=== PATIENT | female | born 1980 | race Caucasian/White ===

== ENCOUNTER 2017-10-24 13:12 | Outpatient (CLI) | payer OTHER | END 2017-10-24 15:00 | disposition home or self-care (01) | LOC: SUS 13:12 | PROVIDERS: ATTEND Specialist | DX: E04.2 Nontoxic multinodular goiter (principal) | CPT/HCPCS: 76536-TC ==

== ENCOUNTER 2017-11-25 07:38 | Inpatient (IN) | payer OTHER ==
[~2017-11-25] VITALS: Ht 172.7 cm; Wt 74.8 kg
[~2017-11-25 07:38] MED LIST: LIDOCAINE/EPI MPF 2%1:200000 10 ML VIAL INJ ONE
[2017-11-25] MEDS ORDERED: LR 1,000 ML IV SCH (08:53)
[2017-11-25] MEDS ORDERED: OXYTOCIN/0.9 % SODIUM CHLORIDE 1,000 ML IV SCH (08:53)
[2017-11-25] MEDS ORDERED: AMPICILLIN SODIUM 2 GM in NS 100 ML IV ONE (09:00)
[2017-11-25] MEDS ORDERED: TERBUTALINE SULFATE 1 MG/ML VIAL SUBCUT ONE (09:00)
[2017-11-25] MEDS ORDERED: NALBUPHINE HCL 10 MG/ML AMP IVP PRN (09:00)
[2017-11-25 09:37] VITALS: BP_SYST 118
[2017-11-25 10:15] LABS: BASOPHILS % (AUTO) 0.3 % (0.0-2.0); EOSINOPHILS # (AUTO) 0.2 K/uL (0.0-0.4); EOSINOPHILS % (AUTO) 1.7 % (0.0-4.0); HEMATOCRIT 33.9 % (36-48); HEMOGLOBIN 11.6 g/dL (12.0-16.0); LYMPHOCYTES # (AUTO) 1.5 K/uL (1.0-5.5); LYMPHOCYTES % (AUTO) 17.1 % (20.5-51.5); MEAN CORPUSCULAR HEMOGLOBIN 32 pg (27-31); MEAN CORPUSCULAR HGB CONC 34 % (32-36); MEAN CORPUSCULAR VOLUME 93 fL (79.0-98.0); MONOCYTES # (AUTO) 0.9 K/uL (0.0-1.0); MONOCYTES % (AUTO) 10.4 % (1.7-9.3); NEUTROPHILS # (AUTO) 6.3 K/uL (1.8-7.7); NEUTROPHILS % (AUTO) 70.5 % (40.0-70.0); PLATELET COUNT (AUTO) 194 K/uL (130-430); RED BLOOD CELL COUNT(AUTO) 3.64 MIL/uL (4.2-6.2); RED CELL DISTRIBUTION WIDTH 12.2 % (9.0-15.0); WHITE BLOOD COUNT (AUTO) 8.9 K/uL (4.8-10.8)
[2017-11-25] MEDS ORDERED: FENT2mCg/mL-ROPIVA0.2%/NS EPID 150 ML EP SCH (12:58)
[2017-11-25] MEDS ORDERED: fentaNYL CITRATE/PF 100 MCG/2 ML AMP ONE (12:58)
[2017-11-25] MEDS ORDERED: ROPIVACAINE 0.2% 100 ML ONE (12:58)
[2017-11-25] MEDS ORDERED: AMPICILLIN SODIUM 1 GM in NS 50 ML IV SCH (13:00)
[2017-11-25] MEDS ORDERED: OXYTOCIN/0.9 % SODIUM CHLORIDE 1,000 ML IV ONE (14:19)
[2017-11-25] MEDS ORDERED: HYDROCORTISONE 0.5%, 28.35 GM TOPICAL CREAM TP PRN (14:30)
[2017-11-25] MEDS ORDERED: GLYCERIN/WITCH HAZEL (TUCKS PADS) TP PRN (14:30)
[2017-11-25] MEDS ORDERED: ANUSOL 1 EA SUPP.RECT (PREPARATION H) RC PRN (14:30)
[2017-11-25] MEDS ORDERED: LANOLIN 7 GM OINT. TP PRN (14:30)
[2017-11-25] MEDS ORDERED: SENNOSIDES/DOCUSATE SODIUM 1 TAB TABLET(SENOKOT-S) PO PRN (14:30)
[2017-11-25] MEDS ORDERED: DOCUSATE SODIUM 100 MG CAPSULE PO PRN (14:30)
[2017-11-25] MEDS ORDERED: DERMOPLAST SPRAY TP PRN (14:30)
[2017-11-25] MEDS ORDERED: METHYLERGONOVINE MALEATE 0.2 MG TABLET PO PRN (14:30)
[2017-11-25] MEDS ORDERED: DIPH-TET-PERTUS Vaccine 0.5 ML VIAL (ADACEL) I.M. PRN (14:30)
[2017-11-25] MEDS: IBUPROFEN 600 MG TABLET PO SCH ×2 (18:04→23:50)
[2017-11-25] MEDS ORDERED: TEMAZEPAM 15 MG CAPSULE PO PRN (21:00)
[2017-11-26] MEDS: IBUPROFEN 600 MG TABLET PO SCH ×3 (05:59→17:43)
[2017-11-26 07:10] LABS: HEMATOCRIT 31.9 % (36-48); HEMOGLOBIN 10.8 g/dL (12.0-16.0)
[2017-11-27] MEDS: IBUPROFEN 600 MG TABLET PO SCH ×2 (00:37→06:26)
== END 2017-11-27 11:00 | disposition home or self-care (01) | DRG 775 ==
LOC: SPU 07:38
PROVIDERS: ADMIT Specialist; ATTEND Specialist
PROC: 10E0XZZ Delivery of Products of Conception, External Approach (ICD-10-PCS; principal; 2017-11-25)
PROC: 0W8NXZZ Division of Female Perineum, External Approach (ICD-10-PCS; 2017-11-25)
PROC: 3E0R3BZ Introduction of Anesthetic Agent into Spinal Canal, Percutaneous Approach (ICD-10-PCS; 2017-11-25)
PROC: 00HU33Z Insertion of Infusion Device into Spinal Canal, Percutaneous Approach (ICD-10-PCS; 2017-11-25)
DX: O69.81X0 Labor and delivery complicated by cord around neck, without compression, not applicable or unspecified (principal); O09.523 Supervision of elderly multigravida, third trimester; Z37.0 Single live birth; Z3A.39 39 weeks gestation of pregnancy
CPT/HCPCS: 36415; 85018-TC; 85025; 86592; 86886; 86900; 86901; J0290; J2590; J2795; J3010

== ENCOUNTER → 2018-02-24 | Day surgery (SDC) | payer OTHER | END | disposition still patient (30) | LOC: SUS 08:55 | PROVIDERS: ATTEND Specialist | DX: E04.2 Nontoxic multinodular goiter (principal) | CPT/HCPCS: 10022; 88172; 88173; 88305; 88307 ==

== ENCOUNTER 2019-03-10 08:46 | Outpatient (CLI) | payer OTHER | END 2019-03-10 19:54 | disposition home or self-care (01) | LOC: SUS 08:46 | PROVIDERS: ATTEND Otolaryngology | DX: E04.2 Nontoxic multinodular goiter (principal) | CPT/HCPCS: 76536-TC ==